=== PATIENT | male | born 1965 | race Caucasian/White ===

== ENCOUNTER 2018-09-18 13:38 | Outpatient (CLI) | payer OTHER ==
--- NOTE | 2018-09-18 14:37 | RAD ---
RIGHT HIP TWO VIEWS: History: Hip pain. FINDINGS: There is marked superior joint space narrowing of the right hip. There is also a suggestion of a slig htly shallow acetabulum present. There is a femoral head/neck bump which would suggest an underlying etiology of femoral acetabular impingement. IMPRESSION: Marked superior joint space narrowing. There is suggestion of some mild developmental dysplasia of th e hip. POS: TPC
--- NOTE | 2018-09-18 14:40 | RAD ---
AP PELVIS: History: Right hip pain. FINDINGS: Lower lumbar spine shows very minimal arthritic change. There is marked joint space narrowing superio rly at both the right and left hips. There is femoral bumps along the femoral head and neck junction suggesting underlying femoral acetabular impingement associated with these findings. IMPRESSION: Marked joint space narrowing of the superior weightbearing surface of both hips. 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 POS: TPC
--- NOTE | 2018-09-18 14:45 | RAD ---
EXAM: LEFT HIP TWO VIEWS: History: Left hip pain. FINDINGS: Left hip joint arthrosis with narrowing of the left hip joint with some sclerosis and eburnation and prominent subchondral cystic changes involving the superior lateral acetabulum. There is evidence for a dysplastic bump of the lateral femoral head/neck junction which is a finding seen in association w ith femoral acetabular impingement. No acute fracture or dislocation. IMPRESSION: Fairly severe left hip joint arthrosis with joint space loss, sclerosis and subchondral cystic change s as well as evidence for femoral acetabular impingement. POS: TPC
== END 2018-09-18 13:39 | disposition home or self-care (01) ==
LOC: RAD 13:38
PROVIDERS: ATTEND Nurse Practitioner Family
DX: M25.551 Pain in right hip (principal); M25.552 Pain in left hip; M16.12 Unilateral primary osteoarthritis, left hip; M25.851 Other specified joint disorders, right hip
CPT/HCPCS: 72170

== ENCOUNTER 2019-09-10 08:01 | Outpatient (CLI) | payer OTHER ==
[2019-09-10 13:45] LABS: #Eosinphils 0.2 thou/uL (0.0-0.7); #Lymphocytes 2.1 thou/uL (1.20-3.40); #Monocytes 0.8 thou/uL (0.11-0.59); #Neutrophils 5.4 thou/uL (1.40-6.50); %Basophils 0.3 % (0.0-1.0); %Eosinophils 2.5 % (0.0-10.0); %Lymphocytes 24.9 % (21.0-51.0); %Monocytes 9.3 % (0.0-10.0); Hemoglobin 15.6 g/dL (14.0-18.0); Mean Corpuscular HGB CONC 34.6 g/dL (32.0-36.0); Mean Corpuscular Hemoglobin 31.5 pg (27.0-31.0); Mean Corpuscular Volume 91.2 fL (78.0-98.0); Mean Platelet Volume 8.4 fL (7.4-10.4); Platelet Count 271 thou/uL (130-400); RBC Distribution Width 11.9 % (11.5-14.5); Red Blood Cell (RBC) Count 4.94 mill/uL (4.70-6.10); White Blood Cell (WBC) Count 8.6 thou/uL (4.8-10.8)
[2019-09-10 13:47] LABS: Bacteria/HPF None Seen HPF (None Seen); Bilirubin Negative (Negative); Blood, Urine Negative (Negative); Clarity Clear (Clear); Glucose, Urine (Dipstick) Normal (Negative); Leukocyte Negative Leu/uL (Negative); Nitrite Negative (Negative); Protein, Urine (Dipstick) Negative (Neg-Trace); RBC/HPF 0-3 HPF (0-3); Squamous Epithelial None Seen HPF (0-3); Urobilinogen Normal mg/dL (Less than 2); WBC/HPF None Seen HPF (0-3)
[2019-09-10 13:50] LABS: INR-International Normal Ratio 0.9; Prothrombin Time 12.4 SEC (12.0-14.7)
[2019-09-10 14:12] LABS: Anion Gap 11 mmol/L (10-20); BUN (Urea Nitrogen) 14 mg/dL (8.4-25.7); Calc. Creatinine Clearance 0 mL/min (70-130); Calcium 9.3 mg/dL (7.8-10.44); Carbon Dioxide 27 mmol/L (22-29); Chloride 104 mmol/L (98-107); Estimated GFR-MDRD Greater than 90; Glucose 79 mg/dL (70-105); Potassium 4.2 mmol/L (3.5-5.1); Sodium 138 mmol/L (136-145)
--- NOTE | 2019-09-10 16:57 | EKG ---
Test Reason : Blood Pressure : / mmHG Vent. Rate : 064 BPM Atrial Rate : 064 BPM P-R Int : 138 ms QRS Dur : 090 ms QT Int : 396 ms P-R-T Axes : 024 005 -25 degrees QTc Int : 408 ms Normal sinus rhythm Moderate voltage criteria for LVH, may be normal variant T wave abnormality, consider inferolateral ischemia Abnormal ECG No previous ECGs available Confirmed by DR. Nasra MARTINEZ ([id number]) on 09/10/2019 4:56:55 PM Referred By: CHELSEY Confirmed By:DR. Nasra MARTINEZ
== END 2019-09-10 08:02 | disposition home or self-care (01) ==
LOC: LABBT 08:01
PROVIDERS: ATTEND Orthopaedic Surgery
DX: Z01.818 Encounter for other preprocedural examination (principal); M16.0 Bilateral primary osteoarthritis of hip
CPT/HCPCS: 80048; 81001; 85025; 85610; 87081; 93005; 93010

== ENCOUNTER 2019-09-10 12:30 | Inpatient (IN) | payer OTHER ==
[2019-09-10 12:32] VITALS: BMI 29.5
[2019-09-22] MEDS ORDERED: Sodium Chloride 0.9% 100 ML ONE (06:01)
[2019-09-22] MEDS ORDERED: Tranexamic Acid 1,000 MG/10 ML VIAL ONE (06:01)
[2019-09-22] MEDS ORDERED: Vancomycin 1.5 GRAM/300 ML BAG 1.5 GM/300 ML BAG ONE (06:01)
[2019-09-22] MEDS ORDERED: Fentanyl 100 MCG/2 ML VIAL ONE ×2 (06:03→06:28)
[2019-09-22] MEDS ORDERED: Midazolam HCl 2 mg/2 ml Vial ONE (06:28)
[2019-09-22] MEDS ORDERED: Promethazine HCl 25 MG SUPP PR PRN (06:30)
[2019-09-22] MEDS ORDERED: Promethazine HCl 25 MG/ML VIAL IM PRN ×2 (06:30)
[2019-09-22] MEDS ORDERED: Communication Order-Pharmacy FS SCH ×2 (06:30)
[2019-09-22] MEDS ORDERED: diphenhydrAMINE 25 MG CAP PO PRN (06:30)
[2019-09-22] MEDS ORDERED: Ondansetron PF 4 MG/2 ML Vial IVP PRN (06:30)
[2019-09-22] MEDS ORDERED: Zolpidem Tartrate 5 MG TAB PO PRN (06:30)
[2019-09-22] MEDS ORDERED: Morphine Sulfate 2 MG/ML SYRINGE SLOW IVP PRN (06:30)
[2019-09-22] MEDS ORDERED: HYDROmorphone 2 MG/ML VIAL SLOW IVP PRN (06:30)
[2019-09-22] MEDS ORDERED: Promethazine HCl 25 MG/ML VIAL SLOW IVP PRN (06:30)
[2019-09-22] MEDS ORDERED: Naloxone HCl 0.4 mg/ml Vial IVP PRN ×2 (06:30)
[2019-09-22] MEDS ORDERED: Meperidine HCl/PF 25 MG/ML VIAL SLOW IVP PRN (06:30)
[2019-09-22] MEDS ORDERED: diphenhydrAMINE 50 MG/ML VIAL IVP PRN (06:30)
[2019-09-22] MEDS ORDERED: diphenhydrAMINE 50 MG/ML VIAL IM PRN (06:30)
[2019-09-22] MEDS ORDERED: PACU-Morphine 4MG/ML VIAL SLOW IVP PRN (06:30)
[2019-09-22] MEDS ORDERED: Bupivacaine 0.25% 10 ML VIAL EPIDURAL PRN (06:30)
[2019-09-22] MEDS ORDERED: Ondansetron HCl/PF 4 MG/2 ML Vial IVP PRN (06:30)
[2019-09-22] MEDS ORDERED: Ropivacaine 0.2% HCl/PF 20 ML ONE (07:09)
[2019-09-22] MEDS ORDERED: HYDROcodone/Acetaminophen 5/325 mg Tablet PO PRN ×2 (07:45)
[2019-09-22] MEDS ORDERED: traMADol HCl 50 MG TAB PO PRN ×3 (07:45→09:21)
[2019-09-22] MEDS ORDERED: Naloxone HCl 0.4 mg/ml Vial IV PRN (07:45)
[2019-09-22] MEDS ORDERED: Hydrocerin (Eucerin) Cream 120 gm Jar TOP PRN (07:45)
--- NOTE | 2019-09-22 08:21 | HP ---
HISTORY OF PRESENT ILLNESS: Mr. Dan is a 54-year-old male, who presents with left hip pain. The patient's pain limits exercise and activities. The patient has failed conservative measures. Followed by his pain management doctor, Dr. Herring. His pain can be severe. He has pain with walking or sitting most of the day. He says it is groin pain. PAST MEDICAL HISTORY: Includes reflux. PAST SURGICAL HISTORY: Denied. ALLERGIES: NO KNOWN DRUG ALLERGIES. MEDICATIONS: Include; 1. Acetaminophen. 2. Calcium carbonate. 3. Vitamin D3. 4. chondroitin sulfate. 5. Omeprazole. SOCIAL HISTORY: He is a former smoker, . No history of alcohol. PHYSICAL EXAMINATION: General: Alert and oriented male, in no acute distress. EXTREMITIES: The patient's left lower extremity, he has groin pain with internal and external rotation. There is no instability. Neurovascularly intact. The patient has antalgic gait. Straight leg raise is negative. LABORATORY DATA: The patient's MRSA screening was negative. Creatinine of 0.8. H and H of 15 and 45. INR of 0.9. IMAGING DATA: The patient has x-rays from last year showing loss, peripheral osteophyte, joint space narrowing. IMPRESSION: Osteoarthritis of left hip. ASSESSMENT AND PLAN: The patient would like to proceed with a left total hip arthroplasty. I discussed the risks and benefits of the total hip arthroplasty to include, pain, scar, bleeding, infection, decreased range of motion and strength , need for further surgeries, fracture, damage to vital structures, loss of life or limb. The patient understands the anesthetics risks. The patient will have epidural placed and degroot placed. Job ID: [id number] [facility]
[2019-09-22] MEDS ORDERED: Acetaminophen 325 MG TAB PO PRN (09:21)
[2019-09-22] MEDS ORDERED: Morphine 2 MG/ML SYRINGE SLOW IVP PRN (09:21)
[2019-09-22] MEDS ORDERED: Morphine 4 MG/ML VIAL SLOW IVP PRN (09:21)
[2019-09-22] MEDS ORDERED: HYDROcodone/Acetaminophen 10/325 mg Tablet PO PRN ×2 (09:21)
[2019-09-22] MEDS ORDERED: Fentanyl 100 MCG/2 ML VIAL SLOW IVP PRN ×2 (09:21)
[2019-09-22] MEDS ORDERED: Glycopyrrolate 0.2 MG/ML 5 ML SYRINGE ONE (09:27)
[2019-09-22] MEDS ORDERED: PROPOFOL 200 MG/20 ML VIAL ONE (09:27)
[2019-09-22] MEDS ORDERED: Lidocaine 1% PF 5 ML VIAL ONE (09:27)
[2019-09-22] MEDS ORDERED: Ondansetron PF 4 MG/2 ML Vial ONE (09:27)
[2019-09-22] MEDS ORDERED: Rocuronium Bromide 10 MG/ML (10ML VIAL) ONE (09:27)
[2019-09-22] MEDS ORDERED: Dexamethasone 20 MG/5 ML VIAL ONE (09:27)
[2019-09-22] MEDS ORDERED: Lidocaine 1.5% w/Epi 1:200K 30 ML VIAL (Epid Use) ONE (09:27)
[2019-09-22] MEDS ORDERED: EPHEDRINE 25 MG/5 ML SYRINGE ONE (09:27)
--- NOTE | 2019-09-22 10:02 | RAD ---
XR Hip Lt 1 View History: Total hip arthroplasty Comparison: Radiograph September 18, 2018 Findings: Single crosstable lateral view demonstrates satisfactory location of the left hip arthropla sty. Impression: Satisfactory postoperative appearance.
--- NOTE | 2019-09-22 10:03 | RAD ---
XR Pelvis AP STANDARD History: Hip arthroplasty Comparison: Radiograph September 18, 2017 Findings: Satisfactory appearance left hip arthroplasty. Expected postoperative gas and edema. High-grade narrowing right hip joint. Subcortical cyst formation and right femoral head/neck remainin g osteophytes. Impression: Satisfactory postoperative appearance.
[2019-09-22] MEDS ORDERED: Aspirin 81 mg Enteric Coated Tablet PO SCH (10:30)
[2019-09-22] MEDS: Ketorolac Tromethamine 30 MG/ML VIAL IVP SCH ×3 (11:16→23:13)
[2019-09-22] MEDS ORDERED: Ketorolac Tromethamine 30 MG/ML VIAL IVP SCH (14:00)
--- NOTE | 2019-09-22 15:32 | HP ---
For Dr. Mike Florez. PRIMARY CARE PROVIDER: [facility]. HISTORY OF PRESENT ILLNESS: The patient is status post left total hip replacement. He has had no chest pain, shortness of breath, fever, chills, nausea, vomiting since his surgery. PAST MEDICAL HISTORY: Pertinent for osteoarthritis in both hips, gastroesophageal reflux disease. CURRENT MEDICATIONS: Omeprazole 20 mg p.o. daily plus some supplements including glucosamine chondroitin, calcium, vitamin D3. ALLERGIES: NO KNOWN DRUG ALLERGIES. PAST SURGICAL HISTORY: None. FAMILY HISTORY: Mother with breast cancer, otherwise, no inheritable diseases. SOCIAL HISTORY: . of bone cancer. Full code status. Son, Roge Dan, his surrogate decision maker. No tobacco. No alcohol or illicit drugs. REVIEW OF SYSTEMS: GENERAL: No headaches, dizziness, or fainting. EYES: No double vision, blurred vision, or flashing light. Does wear glasses. EARS, NOSE, AND THROAT: No ear pain or drainage. No nasal bleeding. No trouble swallowing. CARDIAC: No chest pain, orthopnea, or paroxysmal nocturnal dyspnea. RESPIRATIONS: No cough, wheezing, or asthma. GASTROINTESTINAL: No nausea, vomiting, diarrhea. He does have very occasional hemorrhoidal bleeding. GENITOURINARY: No hematuria, dysuria, or nocturia. MUSCULOSKELETAL: No pain or swelling in his arms or legs. He does have bilateral hip pain with ambulation, which is disabling. NEUROLOGICAL: No strokes, seizures, or focal weakness. PSYCHIATRIC: No anxiety, depression. SKIN: No bruising, bleeding, or rash. HEME/LYMPH: No tender or swollen lymph nodes in axilla, inguinal, or cervical area. PHYSICAL EXAMINATION: GENERAL: The patient is alert, pleasant, cooperative gentleman, in no acute distress. VITAL SIGNS: Blood pressure 141/71, temperature 96.9, pulse 71, respirations 20, room air sat 98%. HEAD, EYES, EARS, NOSE, THROAT: Revealed pupils are equal, round, and reactive to light. Extraocular movements are intact. Sclerae are white. Tympanic membranes are clear. Nose clear. Oral mucous membranes are wet. Dental hygiene is clear. NECK: Supple without jugular venous distention, adenopathy, thyromegaly, or bruits. CHEST: Clear to auscultation and percussion. HEART: Regular rate and rhythm. First and second heart sounds are clear. There are no appreciated murmurs or gallops. ABDOMEN: Soft. Bowel sounds are normal. There is no hepatosplenomegaly. No masses. No rebound. EXTREMITIES: Reveal no cyanosis, clubbing, or edema. PULSES: Carotid, radial, femoral, and dorsalis pedis pulses intact. SKIN: Warm and dry without bruises or rash. HEME/LYMPH: No tender or swollen lymph nodes in axilla, inguinal, or cervical area. NEUROLOGICAL: Cranial nerves 2 through 12 are intact. Sensations intact. Moves all extremities. CARDIOVASCULAR STUDIES: EKG; regular sinus rhythm. Moderate voltage criteria for LVH. T-wave abnormality in the inferior and lateral leads, reviewed by me. IMAGING STUDIES: Hip x-ray reviewed by me, satisfactory postoperative appearance of left hip arthroplasty. LABORATORY RESULTS: Done as an outpatient 09/10/2019; CBC normal. INR 0.9. Basic metabolic profile normal. Urine clear. FINAL DIAGNOSES: Osteoarthritis, gastroesophageal reflux disease, status post left hip arthroplasty. The patient is stable, doing well postoperatively. Continue home medicines. We will follow with you. Job ID: [id number]
[2019-09-22] MEDS: CEFAZOLIN 2 GM in Premix Bag 1 BAG IVPB SCH ×2 (15:53→21:14)
[2019-09-22] MEDS ORDERED: Vancomycin 1.5 GRAM/300 ML BAG 1.5 GM in Premix Bag 1 BAG IVPB SCH (18:00)
[2019-09-22] MEDS: Aspirin 81 mg Enteric Coated Tablet PO SCH (19:47)
[2019-09-22] MEDS: Fentanyl 5 mcg/Bupivacaine 0.075% Cassette 100 ML EPIDURAL SCH (21:14)
[2019-09-23] MEDS: Ketorolac Tromethamine 30 MG/ML VIAL IVP SCH ×3 (05:03→18:04)
[2019-09-23 05:47] LABS: Hemoglobin 13.7 g/dL (14.0-18.0); Mean Corpuscular HGB CONC 34.4 g/dL (32.0-36.0); Mean Corpuscular Hemoglobin 31.3 pg (27.0-31.0); Mean Platelet Volume 8.4 fL (7.4-10.4); Platelet Count 259 thou/uL (130-400); RBC Distribution Width 11.6 % (11.5-14.5); Red Blood Cell (RBC) Count 4.38 mill/uL (4.70-6.10); White Blood Cell (WBC) Count 19.9 thou/uL (4.8-10.8)
[2019-09-23] MEDS: Calcium Carbonate 600 MG + Vit D TAB PO SCH (09:10)
[2019-09-23] MEDS: Ferrous Gluconate 324 MG TAB PO SCH ×2 (09:10→16:35)
[2019-09-23] MEDS: Aspirin 81 mg Enteric Coated Tablet PO SCH ×2 (09:11→20:19)
[2019-09-23] MEDS: Multivitamin W/ Minerals 1 TAB PO SCH (09:11)
[2019-09-23] MEDS: Senokot S 8.6-50 MG TAB PO SCH ×2 (09:11→20:19)
--- NOTE | 2019-09-23 10:17 | OP ---
DATE OF PROCEDURE: PREOPERATIVE DIAGNOSIS: Left hip osteoarthritis. POSTOPERATIVE DIAGNOSIS: Left hip osteoarthritis. PROCEDURE PERFORMED: Left total hip arthroplasty. CREDIT CONTROL ASSISTANT: Fan Wade. ANESTHESIOLOGIST: Dr. Lui. ANESTHESIA: The patient received general endotracheal intubation with an epidural. ESTIMATED BLOOD LOSS: 100 mL. TOURNIQUET TIME: None. IMPLANTS: Centuria Biolox delta ceramic head 36 mm +5 mm, Accolade II 130 degree neck angle with size 4, Trident x3 poly 10 degree insert with 36 mm and a hemispherical shell 54 mm. ANTIBIOTICS: Ancef 2 g, vancomycin 1.5, TXA 1 g. COMPLICATIONS: Inferior ramus fracture after implantation of the cup. HISTORY OF PRESENT ILLNESS: Mr. Dan is a 54-year-old male who presents with left hip pain. The patient failed conservative measures. I discussed with him the risks and benefits of left total hip arthroplasty including pain, scar, bleeding, infection, damage to vital structures, decreased range of motion and strength, blood clots, need for further surgeries, rotational deformity. I discussed the risks and benefits of procedure, loss of life or limb. The patient understood the risks and benefits and elected to proceed. DESCRIPTION OF PROCEDURE: Time-out was performed designating the left lower extremity as the operative site based on site, consents, and marking. After time-out, the patient's left lower extremity was prepped and draped in sterile fashion. He was placed in a lateral position. Bony prominences were well padded. A shoulder roll was in place. We made incision down through skin, came down to IT band. We took down the gluteus medius and minimus, the 2/3 of the tendon, leaving the superior aspect inserted, exposed the capsule. We T'd the capsule and kept both ends for closure. We dislocated the hip, cut the femoral head, removing it, giving about a half fingerbreadth of the lesser trochanter, removing the head. We then changed our position to look at the acetabulum. We placed our retractors. We did a labrectomy, medialized with a 44 and reamed up to a 54. We trialed a 54, which we felt we had overall good alignment and position. We then placed a 54 Tritanium hemispherical shell. On completion of this, we noticed a small crack that was only noted progressing into the inferior ramus. The cup was stable and firmly fixed. We did not like to proceed with anymore. With more manipulation, we placed our poly and rotated posteriorly and superiorly and moved onto the hip, moved all abductors out of the way and placed our opening awl, broached down to a 4 and placed the size 4 stem, and placed trial with a 0 - +2, +5 with overall best rotation, alignment and length. We then removed, placed our size 4, placed our +[address], reduced, had good overall rotation and range of motion. No impingement. I liked the position of the hip and length, has been washed, closed the capsule with Vicryl, closed the gluteus medius with 2 Vicryl, closed the IT band with #2 Vicryl, 2 Quill, 0 Quill, 2-0 Quill, and glue. The patient will be touchdown weightbearing on the left side given his small acetabular crack for 6 weeks . Job ID: [id number]
[2019-09-23] MEDS: Fentanyl 5 mcg/Bupivacaine 0.075% Cassette 100 ML EPIDURAL SCH (13:33)
[2019-09-24] MEDS: Ketorolac Tromethamine 30 MG/ML VIAL IVP SCH ×2 (00:16→05:57)
[2019-09-24 05:37] LABS: Hemoglobin 12.2 g/dL (14.0-18.0); Mean Corpuscular HGB CONC 34.8 g/dL (32.0-36.0); Mean Corpuscular Hemoglobin 31.9 pg (27.0-31.0); Mean Corpuscular Volume 91.6 fL (78.0-98.0); Mean Platelet Volume 8.5 fL (7.4-10.4); Platelet Count 219 thou/uL (130-400); RBC Distribution Width 11.7 % (11.5-14.5); Red Blood Cell (RBC) Count 3.81 mill/uL (4.70-6.10); White Blood Cell (WBC) Count 13.1 thou/uL (4.8-10.8)
[2019-09-24] MEDS: Fentanyl 5 mcg/Bupivacaine 0.075% Cassette 100 ML EPIDURAL SCH (05:58)
[2019-09-24] MEDS: Ferrous Gluconate 324 MG TAB PO SCH ×2 (08:46→18:00)
[2019-09-24] MEDS: Aspirin 81 mg Enteric Coated Tablet PO SCH ×2 (08:47→20:14)
[2019-09-24] MEDS: Multivitamin W/ Minerals 1 TAB PO SCH (08:47)
[2019-09-24] MEDS: Calcium Carbonate 600 MG + Vit D TAB PO SCH (08:47)
[2019-09-24] MEDS: Senokot S 8.6-50 MG TAB PO SCH ×2 (08:48→20:14)
[2019-09-24] MEDS: HYDROcodone/Acetaminophen 10/325 mg Tablet PO PRN ×2 (13:56→20:10)
[2019-09-24] MEDS ORDERED: Fentanyl 100 MCG/2 ML VIAL SLOW IVP SCH ×2 (16:45)
[2019-09-24] MEDS: Ketorolac Tromethamine 30 MG/ML VIAL IVP PRN (20:10)
[2019-09-25 00:29] VITALS: TEMP 98.3
[2019-09-25] MEDS: Ketorolac Tromethamine 30 MG/ML VIAL IVP PRN (04:39)
[2019-09-25 05:39] LABS: Hemoglobin 12.2 g/dL (14.0-18.0); Mean Corpuscular HGB CONC 34.9 g/dL (32.0-36.0); Mean Corpuscular Hemoglobin 31.9 pg (27.0-31.0); Mean Corpuscular Volume 91.3 fL (78.0-98.0); Mean Platelet Volume 8.6 fL (7.4-10.4); Platelet Count 208 thou/uL (130-400); RBC Distribution Width 11.6 % (11.5-14.5); Red Blood Cell (RBC) Count 3.84 mill/uL (4.70-6.10); White Blood Cell (WBC) Count 11.4 thou/uL (4.8-10.8)
[2019-09-25] MEDS: Ferrous Gluconate 324 MG TAB PO SCH (10:14)
[2019-09-25] MEDS: Aspirin 81 mg Enteric Coated Tablet PO SCH (10:14)
[2019-09-25] MEDS: Senokot S 8.6-50 MG TAB PO SCH (10:15)
[2019-09-25] MEDS: Multivitamin W/ Minerals 1 TAB PO SCH (10:15)
[2019-09-25] MEDS: Calcium Carbonate 600 MG + Vit D TAB PO SCH (10:15)
[2019-09-25] MEDS: HYDROcodone/Acetaminophen 10/325 mg Tablet PO PRN (10:20)
[2019-09-25 12:30] VITALS: BP 142/82
== END 2019-09-25 11:30 | disposition home or self-care (01) | DRG 470 ==
LOC: SURG A 09-22 05:34 → SJJU 09-22 11:29
PROVIDERS: ADMIT Orthopaedic Surgery; ATTEND Orthopaedic Surgery
PROC: 0SRB04Z Replacement of Left Hip Joint with Ceramic on Polyethylene Synthetic Substitute, Open Approach (ICD-10-PCS; principal; 2019-09-22)
DX: M16.0 Bilateral primary osteoarthritis of hip (principal); K21.9 Gastro-esophageal reflux disease without esophagitis; E66.9 Obesity, unspecified; Z87.891 Personal history of nicotine dependence; Z68.29 Body mass index [BMI] 29.0-29.9, adult
CPT/HCPCS: 36415; 72170; 85027; J0690; J1100; J1885; J2001; J2250; J2405; J2704; J2795; J3010; J3490

== ENCOUNTER 2020-10-20 09:17 | Outpatient (CLI) | payer BC, OTHER ==
[2020-10-20 11:19] LABS: #Basophils 0.1 10x3/uL (0.0-0.2); #Eosinphils 0.4 10x3/uL (0.0-0.5); #Monocytes 0.8 10x3/uL (0.0-1.1); #Neutrophils 5.2 10x3/uL (1.5-8.4); %Basophils 0.7 % (0.0-2.0); %Eosinophils 4.7 % (0.0-6.0); %Lymphocytes 23.9 % (18.0-47.0); %Monocytes 9.7 % (0.0-10.0); %Neutrophils 60.8 % (40.0-75.0); Hemoglobin 15.8 g/dL (13.5-17.5); Mean Corpuscular HGB CONC 34.1 g/dL (32.0-36.0); Mean Corpuscular Volume 85.1 fl (81.2-95.1); Platelet Count 281 10x3/uL (150-450); RBC Distribution Width 12.6 % (11.5-14.5); Red Blood Cell (RBC) Count 5.45 10x6/uL (4.32-5.72); White Blood Cell (WBC) Count 8.6 10x3/uL (3.5-10.5)
[2020-10-20 11:34] LABS: Anion Gap 13 mmol/L (10-20); BUN (Urea Nitrogen) 18 mg/dL (8.4-25.7); Calc. Creatinine Clearance 0 mL/min (70-130); Calcium 9.4 mg/dL (7.8-10.44); Carbon Dioxide 27 mmol/L (22-29); Chloride 104 mmol/L (98-107); Glucose 88 mg/dL (70-105); Potassium 4.7 mmol/L (3.5-5.1); Sodium 139 mmol/L (136-145)
[2020-10-20 11:39] LABS: INR-International Normal Ratio 0.9; Prothrombin Time 10.3 sec (9.5-12.1)
[2020-10-20 17:44] LABS: SARS-CoV-2 PCR by NAA Not Detected (NotDetected)
== END 2020-10-20 09:18 | disposition home or self-care (01) ==
LOC: LABBT 09:17
PROVIDERS: ATTEND Orthopaedic Surgery
DX: Z01.818 Encounter for other preprocedural examination (principal); Z20.822 Contact with and (suspected) exposure to COVID-19
CPT/HCPCS: 80048; 85025; 85610; 87081; 87635; 93005; 93010; U0003; U0005

== ENCOUNTER 2020-10-20 09:30 | Inpatient (IN) | payer OTHER ==
[2020-10-24 14:20] VITALS: BMI 30.8
[2020-10-25] MEDS ORDERED: Tranexamic Acid 1,000 MG/10 ML VIAL ONE ×2 (07:53→11:30)
[2020-10-25] MEDS ORDERED: Sodium Chloride 0.9% 100 ML ONE (07:53)
[2020-10-25] MEDS ORDERED: Vancomycin 1.5 GRAM/300 ML BAG ONE (07:54)
[2020-10-25] MEDS ORDERED: Midazolam HCl 2 mg/2 ml Vial ONE (08:21)
[2020-10-25] MEDS ORDERED: Fentanyl 100 MCG/2 ML VIAL ONE ×7 (08:21→14:13)
[2020-10-25] MEDS ORDERED: Dexmedetomidine 200 MCG/2 ML VIAL ONE (09:07)
[2020-10-25] MEDS ORDERED: Lidocaine 1% PF 5 ML VIAL ONE (09:27)
[2020-10-25] MEDS ORDERED: Glycopyrrolate 0.2 MG/ML 5 ML SYRINGE ONE (09:27)
[2020-10-25] MEDS ORDERED: PROPOFOL 200 MG/20 ML VIAL ONE (09:27)
[2020-10-25] MEDS ORDERED: Lidocaine 2% w/Epinephrine 1:200K 20 ML VIAL ONE (09:27)
[2020-10-25] MEDS ORDERED: Rocuronium Bromide 10 MG/ML (10ML VIAL) ONE (09:27)
[2020-10-25] MEDS ORDERED: ePHEDrine Sulfate 50 MG/10 ML VIAL ONE (09:27)
[2020-10-25] MEDS ORDERED: Dexamethasone 20 MG/5 ML VIAL ONE (09:27)
[2020-10-25] MEDS ORDERED: PHENYLEPHRINE-NS 100 MCG/ML 10 ML SYRINGE ONE (09:27)
[2020-10-25] MEDS ORDERED: Ondansetron PF 4 MG/2 ML Vial ONE (09:27)
[2020-10-25] MEDS ORDERED: Lidocaine 1.5% w/Epi 1:200K 30 ML VIAL (Epid Use) ONE (09:32)
[2020-10-25] MEDS ORDERED: Ropivacaine 0.5% HCl/PF (150 MG/30 ML VIAL) ONE (11:11)
[2020-10-25] MEDS ORDERED: Zolpidem Tartrate 5 MG TAB PO PRN ×2 (11:27→12:30)
[2020-10-25] MEDS ORDERED: HYDROcodone/Acetaminophen 10/325 mg Tablet PO PRN ×2 (11:27)
[2020-10-25] MEDS ORDERED: Ketorolac Tromethamine 30 MG/ML VIAL IVP PRN (11:27)
[2020-10-25] MEDS ORDERED: traMADol HCl 50 MG TAB PO PRN ×3 (11:27→12:30)
[2020-10-25] MEDS ORDERED: Promethazine HCl 25 MG/ML VIAL IM PRN ×2 (11:27→12:30)
[2020-10-25] MEDS ORDERED: Acetaminophen 325 MG TAB PO PRN (11:27)
[2020-10-25] MEDS ORDERED: diphenhydrAMINE 25 MG CAP PO PRN ×2 (11:27→12:30)
[2020-10-25] MEDS ORDERED: Ondansetron PF 4 MG/2 ML Vial IVP PRN ×2 (11:27→12:30)
[2020-10-25] MEDS ORDERED: Fentanyl 100 MCG/2 ML VIAL SLOW IVP PRN ×2 (11:27)
[2020-10-25] MEDS ORDERED: Hydrocerin (Eucerin) Cream 120 gm Jar TOP PRN (12:30)
[2020-10-25] MEDS ORDERED: diphenhydrAMINE 50 MG/ML VIAL IM PRN (12:30)
[2020-10-25] MEDS ORDERED: Naloxone HCl 0.4 mg/ml Vial IVP PRN (12:30)
[2020-10-25] MEDS ORDERED: Naloxone HCl 0.4 mg/ml Vial IV PRN (12:30)
[2020-10-25] MEDS ORDERED: Promethazine HCl 25 MG SUPP PR PRN (12:30)
[2020-10-25] MEDS ORDERED: Fentanyl 5 mcg/Bup 0.075% Cadd 100 ML EPIDURAL SCH (12:30)
[2020-10-25] MEDS ORDERED: diphenhydrAMINE 50 MG/ML VIAL IVP PRN (12:30)
[2020-10-25] MEDS ORDERED: Ketorolac Tromethamine 30 MG/ML VIAL ONE (13:28)
[2020-10-25] MEDS ORDERED: Bupivacaine 0.5% 10 ML VIAL ONE (13:42)
[2020-10-25] MEDS: Sodium Chloride 0.9% 1,000 ML IV SCH ×2 (15:29→23:04)
[2020-10-25] MEDS: CEFAZOLIN 2 GM in Premix Bag 1 BAG IVPB SCH ×2 (16:27→23:39)
[2020-10-25] MEDS: Ketorolac Tromethamine 30 MG/ML VIAL IVP SCH ×2 (17:23→23:52)
[2020-10-25] MEDS: HYDROcodone/Acetaminophen 5/325 mg Tablet PO PRN ×3 (17:23→23:45)
[2020-10-25] MEDS ORDERED: Vancomycin 1.5 GRAM/300 ML BAG 1.5 GM in Premix Bag 1 BAG IVPB SCH (20:00)
[2020-10-25] MEDS: Senokot S 8.6-50 MG TAB PO SCH (20:46)
[2020-10-25] MEDS: Aspirin 81 mg Enteric Coated Tablet PO SCH (20:46)
[2020-10-25] MEDS: Ferrous Gluconate 324 MG TAB PO SCH (20:47)
[2020-10-26] MEDS: Fentanyl 5 mcg/Bup 0.075% Cadd 100 ML EPIDURAL SCH ×2 (03:27→20:45)
[2020-10-26 05:42] LABS: Hemoglobin 12.7 g/dL (14.0-18.0); Mean Corpuscular Hemoglobin 29.3 pg (27.0-31.0); Mean Corpuscular Volume 88.8 fL (78.0-98.0); Mean Platelet Volume 8.7 fL (7.4-10.4); Platelet Count 233 thou/uL (130-400); RBC Distribution Width 11.8 % (11.5-14.5); Red Blood Cell (RBC) Count 4.35 mill/uL (4.70-6.10); White Blood Cell (WBC) Count 16.8 thou/uL (4.8-10.8)
[2020-10-26] MEDS: Ketorolac Tromethamine 30 MG/ML VIAL IVP SCH ×3 (05:53→18:00)
[2020-10-26] MEDS: Aspirin 81 mg Enteric Coated Tablet PO SCH ×2 (09:07→20:46)
[2020-10-26] MEDS: Sodium Chloride 0.9% 1,000 ML IV SCH ×2 (09:07→12:16)
[2020-10-26] MEDS: Calcium Carbonate 600 MG + Vit D TAB PO SCH (09:08)
[2020-10-26] MEDS: Ferrous Gluconate 324 MG TAB PO SCH ×2 (09:08→20:46)
[2020-10-26] MEDS: Senokot S 8.6-50 MG TAB PO SCH ×2 (09:08→20:45)
[2020-10-26] MEDS: Multivitamin W/ Minerals 1 TAB PO SCH (09:08)
[2020-10-26] MEDS: HYDROcodone/Acetaminophen 5/325 mg Tablet PO PRN ×2 (09:12→20:44)
[2020-10-26 17:30] LABS: #Monocytes 1.4 thou/uL (0.11-0.59); #Neutrophils 11.8 thou/uL (1.40-6.50); %Basophils 0.1 % (0.0-1.0); %Eosinophils 0.1 % (0.0-10.0); %Lymphocytes 12.9 % (21.0-51.0); %Monocytes 9.1 % (0.0-10.0); %Neutrophils 77.7 % (42.0-75.0); Hemoglobin 13.2 g/dL (14.0-18.0); Mean Corpuscular HGB CONC 34.1 g/dL (32.0-36.0); Mean Corpuscular Hemoglobin 30.3 pg (27.0-31.0); Mean Corpuscular Volume 88.8 fL (78.0-98.0); Platelet Count 236 thou/uL (130-400); RBC Distribution Width 11.9 % (11.5-14.5); Red Blood Cell (RBC) Count 4.37 mill/uL (4.70-6.10); White Blood Cell (WBC) Count 15.2 thou/uL (4.8-10.8)
[2020-10-26 17:47] LABS: Anion Gap 13 mmol/L (10-20); BUN (Urea Nitrogen) 22 mg/dL (8.4-25.7); Calc. Creatinine Clearance 126 mL/min (70-130); Calcium 8.6 mg/dL (7.8-10.44); Carbon Dioxide 24 mmol/L (22-29); Chloride 102 mmol/L (98-107); Glucose 109 mg/dL (70-105); Sodium 135 mmol/L (136-145)
[2020-10-27] MEDS: Ketorolac Tromethamine 30 MG/ML VIAL IVP SCH ×3 (00:38→12:40)
[2020-10-27] MEDS: Sodium Chloride 0.9% 1,000 ML IV SCH ×2 (03:42→14:25)
[2020-10-27 06:08] LABS: Hemoglobin 11.8 g/dL (14.0-18.0); Mean Corpuscular HGB CONC 33.8 g/dL (32.0-36.0); Mean Corpuscular Hemoglobin 30.2 pg (27.0-31.0); Mean Corpuscular Volume 89.5 fL (78.0-98.0); Mean Platelet Volume 8.9 fL (7.4-10.4); Platelet Count 205 thou/uL (130-400); RBC Distribution Width 11.9 % (11.5-14.5); Red Blood Cell (RBC) Count 3.91 mill/uL (4.70-6.10); White Blood Cell (WBC) Count 12.7 thou/uL (4.8-10.8)
[2020-10-27 07:56] VITALS: BP 104/63; TEMP 98.5
[2020-10-27] MEDS: Multivitamin W/ Minerals 1 TAB PO SCH (09:09)
[2020-10-27] MEDS: Ferrous Gluconate 324 MG TAB PO SCH (09:09)
[2020-10-27] MEDS: Aspirin 81 mg Enteric Coated Tablet PO SCH (09:09)
[2020-10-27] MEDS: Senokot S 8.6-50 MG TAB PO SCH (09:09)
[2020-10-27] MEDS: HYDROcodone/Acetaminophen 5/325 mg Tablet PO PRN ×2 (09:09→12:39)
[2020-10-27] MEDS: Calcium Carbonate 600 MG + Vit D TAB PO SCH (09:09)
[2020-10-30] MEDS ORDERED: Ibuprofen 600 MG TAB PO PRN (15:54)
== END 2020-10-27 14:00 | disposition home or self-care (01) | DRG 470 ==
LOC: SJJU 10-25 06:53 → EDSTATUS 10-25 09:30 → SURG B 10-25 15:40
PROVIDERS: ADMIT Orthopaedic Surgery; ATTEND Orthopaedic Surgery
PROC: 0SR904Z Replacement of Right Hip Joint with Ceramic on Polyethylene Synthetic Substitute, Open Approach (ICD-10-PCS; principal; 2020-10-25)
DX: M16.11 Unilateral primary osteoarthritis, right hip (principal); Z96.642 Presence of left artificial hip joint; K21.9 Gastro-esophageal reflux disease without esophagitis; Z87.891 Personal history of nicotine dependence; Z79.899 Other long term (current) drug therapy; Z79.82 Long term (current) use of aspirin; Z98.890 Other specified postprocedural states; D72.829 Elevated white blood cell count, unspecified
CPT/HCPCS: 36415; 72170; 80048; 85027; J0690; J1100; J1885; J2001; J2250; J2405; J2704; J2795; J3010; J3370; J3490